=== PATIENT | male | born 1990 | race American Indian/Alaskan Native ===

== ENCOUNTER 2016-12-19 01:02 | Emergency (ER) | payer SELFPAY ==
[2016-12-19 02:00] VITALS: BP 119/79
--- NOTE | 2016-12-19 02:42 | XRay Report ---
FINAL REPORT PROCEDURE: XR HAND 2V RT TECHNIQUE: RIGHT hand radiographs, AP, lateral, and oblique views. CPT 23499-ED HISTORY: STRUCK A WALL, SWELLING AND PAIN COMPARISON: No prior studies are available for comparison. FINDINGS: Fracture (s) and/or Dislocation(s): None . Alignment: Normal . Joint space(s): Normal . Soft tissues: Mild soft tissue swelling over the medial aspect of the hand. Bone mineralization: Normal . Foreign bodies: None . IMPRESSION: There is no evidence of an acute fracture or dislocation. Mild soft tissue swelling over the medial aspect of the hand.
--- NOTE | 2016-12-19 03:22 | Emergency Department Report ---
Upper Extremity - HPI Chief Complaint: Extremity Injury, Upper Stated Complaint: RT HAND INJURY Time Seen by Provider: 12/19/16 02:48 Upper Extremity: Right Hand Occurred When: Today Mechanism: Other (hit against wall ) Severity: moderate Symptoms: Yes Pain with Movement, Yes Swelling, No Deformity, No Limited Range of Movement, No Numbness, No Weakness, No Bruising/Ecchymosis, No Laceration or Abrasion Other History: 26 y/o male who hit his fist against the wall .pt able to make fist .pt able to move fingers. ED Review of Systems ROS: Stated complaint: RT HAND INJURY Other details as noted in HPI Constitutional: denies: chills, fever Eyes: denies: eye pain, eye discharge, vision change ENT: denies: ear pain, throat pain Respiratory: denies: cough, shortness of breath, wheezing Cardiovascular: denies: chest pain, palpitations Endocrine: no symptoms reported Gastrointestinal: denies: abdominal pain, nausea, diarrhea Genitourinary: denies: urgency, dysuria Musculoskeletal: denies: back pain, arthralgia Skin: denies: rash, lesions Neurological: denies: headache, weakness, paresthesias Psychiatric: denies: anxiety, depression Hematological/Lymphatic: denies: easy bleeding, easy bruising ED Past Medical Hx - Past Medical History Previous Medical History?: No - Surgical History Past Surgical History?: No - Medications Home Medications: Home Medications Medication Instructions Recorded Confirmed Last Taken Type Ibuprofen [Motrin] 800 mg PO Q8HR PRN #30 tablet 12/19/16 Unknown Rx Upper Extremity Exam - Exam General: Vital signs noted. No distress. Alert and acting appropriately. Head and Torso: No HEENT Abnormality, No Neck Tenderness, No Chest/Lungs Abnormality, No Abdominal Tenderness, No Back Tenderness Shoulder Exam: Yes Normal Range of Motion in Shoulder, No Shoulder Tenderness, No Clavicle Tenderness, No Shoulder Deformity, No AC Joint Tenderness Arm Exam: No Arm/Humerus Tenderness, No Arm Deformity Elbow: No Elbow Tenderness, No Normal Range of Motion in Elbow, No Elbow Deformity Forearm: No Forearm Tenderness, No Forearm Deformity, No Pain with Pronation, No Pain with Supination Wrist: Yes Normal ROM in Wrist, No Wrist Tenderness, No Wrist Deformity, No Snuffbox Tenderness, No Pain with Axial Thumb Compression Hand: Yes Hand Tenderness, Yes Normal ROM in Digit(s), No Hand Deformity, No Digit Tenderness, No Digit(s) Deformity, No Tendon Dysfunction CMS Exam: No Broken Skin, No Normal Distal Pulses, No Normal Capillary Refill, No Normal Distal Sensation ED Course Vital Signs 12/19/16 01:58 Temperature 98.3 F Pulse Rate 79 Respiratory 20 Rate Blood Pressure 119/79 O2 Sat by Pulse 98 Oximetry ED Medical Decision Making - Medical Decision Making right hand sprain xray show no dislocation or fracture mild soft tissue swelling over the medial aspect of hand Critical care attestation.: If time is entered above; I have spent that time in minutes in the direct care of this critically ill patient, excluding procedure time. ED Disposition Clinical Impression: Hand sprain Qualifiers: Encounter type: initial encounter Laterality: right Qualified Code(s): S63.91XA - Sprain of unspecified part of right wrist and hand, initial encounter Disposition: DISCHARGED TO HOME OR SELFCARE Is pt being admited?: No Does the pt Need Aspirin: No Condition: Stable Instructions: Hand Sprain (ED) Prescriptions: Ibuprofen [Motrin] 800 mg PO Q8HR PRN #30 tablet PRN Reason: Pain Referrals: PRIMARY CARE, [Primary Care Provider] - 3-5 Days YANICK HERNÁNDEZ MD [Staff Physician] - 3-5 Days Forms: Work/School Release Form(ED) Time of Disposition: 03:27
== END 2016-12-19 04:32 | disposition home or self-care (01) ==
LOC: ED 01:02
DX: S63.91XA Sprain of unspecified part of right wrist and hand, initial encounter (principal); W22.01XA Walked into wall, initial encounter; Y93.9 Activity, unspecified; Y92.89 Other specified places as the place of occurrence of the external cause; Y99.9 Unspecified external cause status

== ENCOUNTER 2020-03-04 17:59 | Emergency (ER) | payer SELFPAY ==
[2020-03-04 18:08] VITALS: BP 133/84
[2020-03-04] MEDS ORDERED: IBUPROFEN 600 MG TAB PO ONE (18:59)
--- NOTE | 2020-03-04 19:04 | Emergency Department Report ---
Vomiting/Diarrhea - HPI Chief Complaint: Nausea/Vomiting/Diarrhea Stated Complaint: VOMITTING,COUGH Time Seen by Provider: 03/04/20 18:59 Duration: 1 Day Severity: mild Nausea/Vomiting Severity: Mild (Has resolved) Pain Severity: None Symptoms: Yes Able to Tolerate Fluids, Yes Family w/ Similar Symptoms, Yes Recent URI Symptoms (Intermittent cough), No Fever, No Recent Unusual Foods, No Recent Untreated Water, No Rash, No Hematuria Other History: 29-year-old -Chinese male presents to the emergency room complaining of nausea vomiting twice at work today. Patient reports he was sent home and told that he had to get a work note to return back. Patient currently reports he feels much better but only has a headache now. Patient states that his headache is located in the frontal just above his eyebrows. Patient reports he has not vomited since 3 PM denies any nausea at this time. He does report a sick contact at home with son had same symptoms but resolved. ED Review of Systems ROS: Stated complaint: VOMITTING,COUGH Other details as noted in HPI Comment: All other systems reviewed and negative ED Past Medical Hx - Social History Smoking Status: Current Every Day Smoker Substance Use Type: Alcohol - Medications Home Medications: Home Medications Medication Instructions Recorded Confirmed Last Taken Type Ibuprofen [Motrin] 800 mg PO Q8HR PRN #30 tablet 12/19/16 Unknown Rx Vomiting Diarrhea Exam - Exam General: Vital signs noted. No distress. Alert and acting appropriately. HEENT: Yes Moist Mucous Membranes, Yes Frontal Tenderness, No Pharyngeal Erythema, No Pharyngeal Exudates, No Rhinorrhea, No Conjuctival Injection, No Maxillary Tenderness Neck: No Adenopathy, No Rigidity Lungs: Yes Clear Lung Sounds, Yes Good Air Exchange, No Wheezes, No Stridor, No Cough, No Nasal Flaring, No Retractions, No Use of Accessory Muscles Heart exam: Regular: Yes, Murmur: No, Tachycardia: No Abdomen: Tenderness: No, Peritoneal Signs: No, Distention: No, Hyperactive Bowel sounds: No Neurologic: Alert and oriented, no deficits. Musculoskeletal: Unremarkable. ED Course Vital Signs 03/04/20 18:02 Temperature 97.6 F Pulse Rate 73 Respiratory 20 Rate Blood Pressure 133/84 O2 Sat by Pulse 98 Oximetry ED Medical Decision Making - Medical Decision Making 1-year-old -Chinese male presents to the emergency room complaining of nausea vomiting twice at work today. Patient reports he was sent home and told that he had to get a work note to return back. Patient currently reports he feels much better but only has a headache now. Patient states that his headache is located in the frontal just above his eyebrows. Patient reports he has not vomited since 3 PM denies any nausea at this time. He does report a sick contact at home with son had same symptoms but resolved. Patient will be given ibuprofen and p.o. challenge. Patient be discharged home and instructed to take [id number] Claritin or Zyrtec's for sinuses. He can take ibuprofen or Tylenol for headache. Critical care attestation.: If time is entered above; I have spent that time in minutes in the direct care of this critically ill patient, excluding procedure time. ED Disposition Clinical Impression: Sinusitis chronic, frontal Headache Qualifiers: Headache type: unspecified Headache chronicity pattern: acute headache Intractability: intractable Qualified Code(s): R51 - Headache Disposition: DC- TO HOME OR SELFCARE Is pt being admited?: No Does the pt Need Aspirin: No Condition: Stable Instructions: Acute Headache (ED), Sinusitis (ED) Additional Instructions: Please try taking [id number] Tylenol ibuprofen Claritin and or Zyrtec's. Increase your water intake. Follow-up with your primary care provider. Referrals: PRIMARY MD RUSH [Primary Care Provider] - 3-5 Days ITZEL HUERTA MD [Staff Physician] - 3-5 Days [facility] [Provider Group] - 3-5 Days Forms: Work/School Release Form(ED)
== END 2020-03-04 19:48 | disposition home or self-care (01) ==
LOC: ED 17:59
DX: J32.1 Chronic frontal sinusitis (principal); R51 Headache; F17.200 Nicotine dependence, unspecified, uncomplicated; Z79.899 Other long term (current) drug therapy
CPT/HCPCS: 99282

== ENCOUNTER 2020-08-16 14:47 | Emergency (ER) | payer SELFPAY ==
[2020-08-16 15:11] VITALS: BP 136/80
--- NOTE | 2020-08-16 16:11 | Emergency Department Report ---
ED ENT HPI - General Chief complaint: Headache Stated complaint: HEADACHES Time Seen by Provider: 08/16/20 16:05 Source: patient Mode of arrival: Ambulatory Limitations: No Limitations - History of Present Illness Initial comments: Is a pleasant 29-year-old male presents the emergency department chief complaint of pressure to the frontal and ethmoid sinus area over the past 2 days. He reports it is aggravated by leaning forward he tried to go to work today but he was unable to do so. He denies any fevers, chills, night sweats, dizziness, blurry vision, nausea,, diarrhea, chest pain, shortness of breath. He describes the pain as pressure and rates a 6 out of 10 in severity. He denies any known past medical history, current medication use or known allergies to medications. He denies any sick contacts. - Related Data Previous Rx's Medication Instructions Recorded Last Taken Type Ibuprofen [Motrin] 800 mg PO Q8HR PRN #30 tablet 12/19/16 Unknown Rx Guaifenesin/Pseudoephedrne HCl 1 each PO BID #20 tab.er.12h 08/16/20 Unknown Rx [Mucinex D ER 600-60 mg Tablet] Naproxen 500 mg PO BID #20 tablet 08/16/20 Unknown Rx methylPREDNISolone [Medrol 4MG 4 mg PO DAILY #1 tab.ds.pk 08/16/20 Unknown Rx DOSEPAK (21 tabs)] Allergies Allergy/AdvReac Type Severity Reaction Status Date / Time No Known Allergies Allergy Verified 12/19/16 01:58 ED Dental HPI - General Chief complaint: Headache Stated complaint: HEADACHES Time Seen by Provider: 08/16/20 16:05 Source: patient Mode of arrival: Ambulatory Limitations: No Limitations - Related Data Previous Rx's Medication Instructions Recorded Last Taken Type Ibuprofen [Motrin] 800 mg PO Q8HR PRN #30 tablet 12/19/16 Unknown Rx Guaifenesin/Pseudoephedrne HCl 1 each PO BID #20 tab.er.12h 08/16/20 Unknown Rx [Mucinex D ER 600-60 mg Tablet] Naproxen 500 mg PO BID #20 tablet 08/16/20 Unknown Rx methylPREDNISolone [Medrol 4MG 4 mg PO DAILY #1 tab.ds.pk 08/16/20 Unknown Rx DOSEPAK (21 tabs)] Allergies Allergy/AdvReac Type Severity Reaction Status Date / Time No Known Allergies Allergy Verified 12/19/16 01:58 ED Review of Systems ROS: Stated complaint: HEADACHES Other details as noted in HPI Comment: All other systems reviewed and negative Constitutional: denies: chills, fever Eyes: denies: eye pain, eye discharge, vision change ENT: as per HPI, congestion. denies: ear pain, throat pain Respiratory: denies: cough, shortness of breath, wheezing Cardiovascular: denies: chest pain, palpitations Endocrine: no symptoms reported Gastrointestinal: denies: abdominal pain, nausea, diarrhea Genitourinary: denies: urgency, dysuria Musculoskeletal: denies: back pain, joint swelling, arthralgia Skin: denies: rash, lesions Neurological: as per HPI, headache. denies: weakness, paresthesias Psychiatric: denies: anxiety, depression Hematological/Lymphatic: denies: easy bleeding, easy bruising ED Past Medical Hx - Past Medical History Previous Medical History?: No - Surgical History Past Surgical History?: No - Social History Smoking Status: Never Smoker - Medications Home Medications: Home Medications Medication Instructions Recorded Confirmed Last Taken Type Ibuprofen [Motrin] 800 mg PO Q8HR PRN #30 tablet 12/19/16 Unknown Rx Guaifenesin/Pseudoephedrne HCl 1 each PO BID #20 tab.er.12h 08/16/20 Unknown Rx [Mucinex D ER 600-60 mg Tablet] Naproxen 500 mg PO BID #20 tablet 08/16/20 Unknown Rx methylPREDNISolone [Medrol 4MG 4 mg PO DAILY #1 tab.ds.pk 08/16/20 Unknown Rx DOSEPAK (21 tabs)] ED Physical Exam - General Limitations: No Limitations General appearance: alert, in no apparent distress - Head Head exam: Present: atraumatic, normocephalic - Eye Eye exam: Present: normal appearance, PERRL, EOMI Pupils: Present: normal accommodation - ENT ENT exam: Present: normal exam, normal orophraynx, mucous membranes moist, other (Tenderness percussion of the bilateral frontal and ethmoid sinuses. Nasal turbinate erythema.) - Neck Neck exam: Present: normal inspection, tenderness, full ROM. Absent: meningismus (Full active range of motion without pain, negative Kernig and presents his), lymphadenopathy - Respiratory Respiratory exam: Present: normal lung sounds bilaterally. Absent: respiratory distress, wheezes, rales, rhonchi, stridor - Cardiovascular Cardiovascular Exam: Present: regular rate, normal rhythm. Absent: systolic murmur, diastolic murmur, rubs, gallop - GI/Abdominal GI/Abdominal exam: Present: soft, normal bowel sounds. Absent: distended, tenderness, guarding, rebound - Rectal Rectal exam: Present: deferred - Extremities Exam Extremities exam: Present: normal inspection, full ROM, normal capillary refill. Absent: tenderness, calf tenderness - Back Exam Back exam: Present: normal inspection, full ROM. Absent: tenderness, CVA tenderness (R), CVA tenderness (L) - Neurological Exam Neurological exam: Present: alert, oriented X3, CN II-XII intact, normal gait - Psychiatric Psychiatric exam: Present: normal affect, normal mood - Skin Skin exam: Present: warm, dry, intact, normal color. Absent: rash ED Course Vital Signs 08/16/20 15:10 Temperature 98.5 F Pulse Rate 65 Respiratory 18 Rate Blood Pressure 136/80 O2 Sat by Pulse 99 Oximetry ED Medical Decision Making - Medical Decision Making Patient had no symptoms of meningitis. His headache was gradual in onset and there were no thunderclap onset making SAH unlikely. The patient's exam and symptoms are consistent with acute sinusitis which think is likely viral or allergic in nature. We will treat with corticosteroids, antihistamines and decongestants and recommended outpatient follow-up with primary care doctor. Patient instructed to return to the [facility] department change worsening symptoms. He verbalized understand the diagnosis, treatment plan and follow-up instructions and all his questions were answered. - Differential Diagnosis Acute sinusitis, allergic rhinitis, migraine headache Critical care attestation.: If time is entered above; I have spent that time in minutes in the direct care of this critically ill patient, excluding procedure time. ED Disposition Clinical Impression: Acute sinusitis Qualifiers: Sinusitis location: ethmoidal Recurrence: non-recurrent Qualified Code(s): J01.20 - Acute ethmoidal sinusitis, unspecified Disposition: - TO HOME OR SELFCARE Is pt being admited?: No Condition: Stable Instructions: Sinusitis (ED) Prescriptions: methylPREDNISolone [Medrol 4MG DOSEPAK (21 tabs)] 4 mg PO DAILY #1 tab.ds.pk Guaifenesin/Pseudoephedrne HCl [Mucinex D ER 600-60 mg Tablet] 1 each PO BID #20 tab.er.12h Naproxen 500 mg PO BID #20 tablet Referrals: [facility] [Provider Group] - 3-5 Days Forms: Work/School Release Form(ED) Time of Disposition: 16:10
== END 2020-08-16 16:22 | disposition home or self-care (01) ==
LOC: ED 14:47
DX: J01.20 Acute ethmoidal sinusitis, unspecified (principal); Z79.899 Other long term (current) drug therapy
CPT/HCPCS: 99282